=== PATIENT | male | born 1965 ===

== ENCOUNTER 2018-02-02 12:37 | Inpatient (IN) ==
[2018-02-02] MEDS ORDERED: ALBUTEROL 2.5 MG/3 ML NEB RESP TX PRN (16:20)
[2018-02-02] MEDS ORDERED: PANTOPRAZOLE 40 MG VIAL IV SCH (16:30)
[2018-02-02] MEDS ORDERED: GLUCAGON 1 MG VIAL IM PRN (16:50)
[2018-02-02] MEDS ORDERED: DEXTROSE 50% 25 GM/50 ML VIAL IV PRN (16:50)
[2018-02-02 16:59] LABS: Basophils # 0.1 10*3/uL (0.0-0.2); Basophils % 0.4 % (0.0-0.8); Hemoglobin 13.9 GM/DL (14.0-18.0); Immature Granulocytes Absolute 0.34 #; Lymphocytes # 0.6 10*3/uL (1.4-4.0); Lymphocytes % 5.3 % (21.2-54.2); Mean Corpuscular HGB Conc 35.6 GM/DL (32-36); Mean Corpuscular Hemoglobin 31 PG (27-34); Mean Corpuscular Volume 87.4 FL (87-102); Mean Platelet Volume 12.7 FL (9.6-12.0); Monocytes # 1.2 10*3/uL (0.11-0.8); Monocytes % 10.5 % (1.7-12.7); Neutrophils # 9.2 10*3/uL (1.4-7.4); Neutrophils % 80.8 % (38.7-73.9); Red Blood Count 4.46 MC/CUMM (3.8-5.5); Red Cell Distribution Width 11.9 % (9.3-17.3); White Blood Count 11.4 T/CUMM (4-12)
[2018-02-02 17:04] LABS: Platelet Count 33 T/CUMM (130-400)
[2018-02-02 17:14] LABS: INR 0.9; PT Patient Result 10.1 SECS
[2018-02-02 17:20] LABS: Alanine Aminotransferase 24 U/L (16-61); Albumin 2.1 G/DL (3.4-5.0); Alkaline Phosphatase 105 U/L (45-117); Aspartate Amino Transferase 32 U/L (0-37); Blood Urea Nitrogen 13 MG/DL (7-18); Calcium 8.1 MG/DL (8.5-10.1); Glucose 339 MG/DL (74-106); Osmolality,Calculated 276.5 MOS/KG (273-304); Potassium 3.2 MMOL/L (3.5-5.1); Sodium 132 MMOL/L (136-145)
[2018-02-02] MEDS: SODIUM CHLORIDE 0.9% 1,000 ML IV SCH (17:20)
[2018-02-02 17:21] LABS: Lactic Acid 2.1 MMOL/L (0.4-2.0)
[2018-02-02] MEDS: POTASSIUM CHLORIDE 20 MEQ TABLET PO PRN ×3 (17:26→21:55)
[2018-02-02] MEDS: PIPERACILLIN/TAZOBACTAM 3,375 MG in SODIUM CHLORIDE 0.9% 100 ML IV SCH (17:50)
[2018-02-02] MEDS ORDERED: CLINDAMYCIN INJ 600 MG in PREMIX 1 EACH IV SCH (18:00)
[2018-02-02 20:29] LABS: Band Neutrophils 3 % (0-10); Lymphocytes 7 % (20-55); Platelet Estimate Normal; Segmented Neutrophils 82 % (50-85); Total Cells Counted 100
[2018-02-02] MEDS ORDERED: ACETAMINOPHEN 500 MG TABLET PO PRN (21:04)
[2018-02-02] MEDS: INSULIN LISPRO 100 UNIT/ML SUBCUT SCH (21:55)
[2018-02-02] MEDS: VANCOMYCIN INJ 1,250 MG in SODIUM CHLORIDE 0.9% 250 ML IV SCH (21:56)
[2018-02-02 22:51] LABS: Apearance,Urine CLEAR (Clear); Blood, Urine Small mg/dL (Negative); Glucose,Urine (UA) >=500 mg/dL (Negative); Ketones,Urine 20 mg/dL (Negative); Nitrite,Urine Negative (Negative); Protein,Urine 30 MG/DL; RBC,Urine 4 /HPF (0-4); Urine Color Amber (Yellow); Urine Specific Gravity 1.028 (1.001-1.035); WBC,Urine 1 /HPF (0-6)
[2018-02-02 22:52] LABS: Bilirubin,Urine Small mg/dL (Negative)
[2018-02-03] MEDS: SODIUM CHLORIDE 0.9% 1,000 ML IV SCH ×4 (00:02→16:45)
[2018-02-03] MEDS: POTASSIUM CHLORIDE 20 MEQ TABLET PO PRN (00:03)
[2018-02-03] MEDS: PIPERACILLIN/TAZOBACTAM 3,375 MG in SODIUM CHLORIDE 0.9% 100 ML IV SCH (03:20)
[2018-02-03 05:13] LABS: Basophils % 0.3 % (0.0-0.8); Eosinophils % 0.1 % (0.00-10.9); Hematocrit 37.2 VOL% (42.0-52.0); Immature Granulocytes % 3.4 %; Immature Granulocytes Absolute 0.32 #; Lymphocytes # 0.9 10*3/uL (1.4-4.0); Lymphocytes % 9.8 % (21.2-54.2); Mean Corpuscular HGB Conc 34.9 GM/DL (32-36); Mean Corpuscular Hemoglobin 31 PG (27-34); Mean Corpuscular Volume 88.6 FL (87-102); Mean Platelet Volume 12.8 FL (9.6-12.0); Monocytes # 1.2 10*3/uL (0.11-0.8); Monocytes % 12.3 % (1.7-12.7); Neutrophils % 74.1 % (38.7-73.9); Red Cell Distribution Width 12.3 % (9.3-17.3); White Blood Count 9.5 T/CUMM (4-12)
[2018-02-03 05:30] LABS: Platelet Count 34 T/CUMM (130-400)
[2018-02-03 05:41] LABS: Band Neutrophils 2 % (0-10); Eosinophils 2 % (0-10); Hypochromasia 1+; Lymphocytes 6 % (20-55); Platelet Estimate Decreased; Segmented Neutrophils 74 % (50-85); Total Cells Counted 100
[2018-02-03 06:00] LABS: Alanine Aminotransferase 22 U/L (16-61); Albumin 1.9 G/DL (3.4-5.0); Alkaline Phosphatase 95 U/L (45-117); Aspartate Amino Transferase 30 U/L (0-37); Blood Urea Nitrogen 19 MG/DL (7-18); Cholesterol 90 MG/DL (50-200); Glucose 243 MG/DL (74-106); HDL Cholesterol < 10 MG/DL (40-60); Osmolality,Calculated 282.8 MOS/KG (273-304); Potassium 3.9 MMOL/L (3.5-5.1); Sodium 137 MMOL/L (136-145); Total Protein 5.4 G/DL (6.4-8.3); Triglycerides 294 MG/DL (2-150); VLDL CHOLESTEROL 58.8 MG/DL
[2018-02-03] MEDS: VANCOMYCIN INJ 1,250 MG in SODIUM CHLORIDE 0.9% 250 ML IV SCH ×3 (06:37→22:45)
[2018-02-03] MEDS: PANTOPRAZOLE 40 MG TABLET PO SCH (08:14)
[2018-02-03] MEDS: INSULIN LISPRO 100 UNIT/ML SUBCUT SCH ×4 (08:14→21:23)
[2018-02-03] MEDS: MEROPENEM 1,000 MG in SODIUM CHLORIDE 0.9% 100 ML IV SCH ×2 (09:42→17:55)
[2018-02-03] MEDS ORDERED: SODIUM CHLORIDE 0.9% 1,000 ML IV PRN (12:01)
[2018-02-03] MEDS ORDERED: diphenhydrAMINE CAP 50 MG CAPSULE PO ONE (14:40)
[2018-02-03] MEDS ORDERED: diphenhydrAMINE CAP 50 MG CAPSULE ONE (14:45)
[2018-02-03] MEDS ORDERED: ROPIVACAINE 0.5% 30 ML VIAL ONE (14:56)
[2018-02-03] MEDS ORDERED: LIDOCAINE MPF 2% /EPI 20 ML VIAL ONE (14:56)
[2018-02-03] MEDS ORDERED: PROPOFOL 200 MG/20 ML VIAL IV ONE (15:57)
[2018-02-03] MEDS ORDERED: MIDAZOLAM 2 MG/2 ML VIAL ONE (15:58)
[2018-02-03] MEDS ORDERED: ONDANSETRON 4 MG/2 ML VIAL ONE (15:58)
[2018-02-03] MEDS ORDERED: fentaNYL 100 MCG/2 ML VIAL ONE (15:58)
[2018-02-03] MEDS ORDERED: NIFEdipine 10 MG CAPSULE PO PRN (16:41)
[2018-02-03] MEDS ORDERED: INSULIN GLARGINE 100 UNIT/ML SUBCUT SCH (21:00)
[2018-02-03] MEDS: oxyCODONE/ACETAMINOPHEN 5-325 MG TABLET PO PRN (21:22)
[2018-02-04] MEDS: MEROPENEM 1,000 MG in SODIUM CHLORIDE 0.9% 100 ML IV SCH ×3 (01:35→17:59)
[2018-02-04] MEDS: SODIUM CHLORIDE 0.9% 1,000 ML IV SCH ×2 (01:45→14:54)
[2018-02-04 05:00] LABS: Basophils % 0.2 % (0.0-0.8); Eosinophils # 0.1 10*3/uL (0.0-0.87); Eosinophils % 0.5 % (0.00-10.9); Hematocrit 34.7 VOL% (42.0-52.0); Hemoglobin 12.1 GM/DL (14.0-18.0); Immature Granulocytes % 1.1 %; Lymphocytes # 1.1 10*3/uL (1.4-4.0); Lymphocytes % 11.8 % (21.2-54.2); Mean Corpuscular HGB Conc 34.9 GM/DL (32-36); Mean Corpuscular Hemoglobin 32 PG (27-34); Mean Corpuscular Volume 90.4 FL (87-102); Mean Platelet Volume 12.1 FL (9.6-12.0); Monocytes # 0.8 10*3/uL (0.11-0.8); Monocytes % 8.9 % (1.7-12.7); Neutrophils # 7.2 10*3/uL (1.4-7.4); Neutrophils % 77.5 % (38.7-73.9); Platelet Count 44 T/CUMM (130-400); Red Blood Count 3.84 MC/CUMM (3.8-5.5); Red Cell Distribution Width 12.5 % (9.3-17.3); White Blood Count 9.3 T/CUMM (4-12)
[2018-02-04 05:27] LABS: Lymphocytes 8 % (20-55); Platelet Estimate Decreased; Segmented Neutrophils 88 % (50-85); Total Cells Counted 100
[2018-02-04 05:41] LABS: Albumin 1.8 G/DL (3.4-5.0); Bilirubin,Total 6.1 MG/DL (0.2-1.0); Calcium 7.5 MG/DL (8.5-10.1); Osmolality,Calculated 288.7 MOS/KG (273-304); Total Protein 5.1 G/DL (6.4-8.3)
[2018-02-04 05:42] LABS: Potassium 3.3 MMOL/L (3.5-5.1)
[2018-02-04] MEDS: VANCOMYCIN INJ 1,250 MG in SODIUM CHLORIDE 0.9% 250 ML IV SCH ×2 (06:20→22:26)
[2018-02-04] MEDS: INSULIN LISPRO 100 UNIT/ML SUBCUT SCH ×4 (09:16→22:25)
[2018-02-04] MEDS: ASPIRIN EC 81 MG TABLET PO SCH ×2 (09:18→09:54)
[2018-02-04] MEDS: POTASSIUM CHLORIDE 20 MEQ TABLET PO PRN ×2 (09:18→12:11)
[2018-02-04] MEDS: PANTOPRAZOLE 40 MG TABLET PO SCH (09:18)
[2018-02-04] MEDS: INSULIN GLARGINE 100 UNIT/ML SUBCUT SCH (22:25)
[2018-02-04] MEDS: oxyCODONE/ACETAMINOPHEN 5-325 MG TABLET PO PRN (22:27)
[2018-02-05] MEDS: MEROPENEM 1,000 MG in SODIUM CHLORIDE 0.9% 100 ML IV SCH (01:25)
[2018-02-05] MEDS: SODIUM CHLORIDE 0.9% 1,000 ML IV SCH ×3 (01:25→15:15)
[2018-02-05 05:20] LABS: Basophils % 0.3 % (0.0-0.8); Eosinophils # 0.1 10*3/uL (0.0-0.87); Hemoglobin 11.3 GM/DL (14.0-18.0); Immature Granulocytes % 1.5 %; Immature Granulocytes Absolute 0.16 #; Lymphocytes # 1.4 10*3/uL (1.4-4.0); Lymphocytes % 12.5 % (21.2-54.2); Mean Corpuscular HGB Conc 34.2 GM/DL (32-36); Mean Corpuscular Hemoglobin 31 PG (27-34); Mean Corpuscular Volume 90.9 FL (87-102); Mean Platelet Volume 11.6 FL (9.6-12.0); Monocytes # 0.9 10*3/uL (0.11-0.8); Monocytes % 7.9 % (1.7-12.7); Neutrophils # 8.3 10*3/uL (1.4-7.4); Neutrophils % 76.8 % (38.7-73.9); Platelet Count 88 T/CUMM (130-400); Red Blood Count 3.63 MC/CUMM (3.8-5.5); Red Cell Distribution Width 12.7 % (9.3-17.3); White Blood Count 10.8 T/CUMM (4-12)
[2018-02-05 05:32] LABS: Calcium 7.6 MG/DL (8.5-10.1); Osmolality,Calculated 287.4 MOS/KG (273-304); Potassium 3.3 MMOL/L (3.5-5.1)
[2018-02-05 06:01] LABS: Band Neutrophils 1 % (0-10); Eosinophils 2 % (0-10); Hypochromasia 1+; Lymphocytes 11 % (20-55); Platelet Estimate Decreased; Segmented Neutrophils 76 % (50-85); Total Cells Counted 100
[2018-02-05] MEDS ORDERED: LIDOCAINE 1% 20 ML VIAL ONE (06:29)
[2018-02-05] MEDS: INSULIN LISPRO 100 UNIT/ML SUBCUT SCH ×4 (07:12→21:20)
[2018-02-05] MEDS ORDERED: MIDAZOLAM 2 MG/2 ML VIAL ONE (08:10)
[2018-02-05] MEDS ORDERED: fentaNYL 100 MCG/2 ML VIAL ONE (08:10)
[2018-02-05] MEDS ORDERED: PROPOFOL 200 MG/20 ML VIAL IV ONE (08:11)
[2018-02-05] MEDS ORDERED: INSULIN DETEMIR 100 UNIT/ML SUBCUT SCH (09:00)
[2018-02-05] MEDS: VANCOMYCIN INJ 1,250 MG in SODIUM CHLORIDE 0.9% 250 ML IV SCH (09:15)
[2018-02-05] MEDS: PIPERACILLIN/TAZOBACTAM 3,375 MG in SODIUM CHLORIDE 0.9% 100 ML IV SCH ×2 (09:39→16:44)
[2018-02-05] MEDS: PANTOPRAZOLE 40 MG TABLET PO SCH (09:40)
[2018-02-05] MEDS: POTASSIUM CHLORIDE 20 MEQ TABLET PO PRN ×2 (21:20→23:34)
[2018-02-05] MEDS: INSULIN GLARGINE 100 UNIT/ML SUBCUT SCH (21:20)
[2018-02-06] MEDS: POTASSIUM CHLORIDE 20 MEQ TABLET PO PRN ×2 (01:21→08:58)
[2018-02-06] MEDS: PIPERACILLIN/TAZOBACTAM 3,375 MG in SODIUM CHLORIDE 0.9% 100 ML IV SCH ×3 (01:21→17:32)
[2018-02-06] MEDS: SODIUM CHLORIDE 0.9% 1,000 ML IV SCH ×3 (01:29→23:15)
[2018-02-06 06:15] LABS: Basophils % 0.3 % (0.0-0.8); Eosinophils # 0.1 10*3/uL (0.0-0.87); Eosinophils % 0.9 % (0.00-10.9); Hematocrit 31.6 VOL% (42.0-52.0); Hemoglobin 10.6 GM/DL (14.0-18.0); Immature Granulocytes % 1.7 %; Immature Granulocytes Absolute 0.18 #; Lymphocytes # 1.3 10*3/uL (1.4-4.0); Lymphocytes % 12.1 % (21.2-54.2); Mean Corpuscular HGB Conc 33.5 GM/DL (32-36); Mean Corpuscular Hemoglobin 31 PG (27-34); Mean Corpuscular Volume 91.3 FL (87-102); Mean Platelet Volume 10.5 FL (9.6-12.0); Monocytes # 0.7 10*3/uL (0.11-0.8); Monocytes % 6.8 % (1.7-12.7); Neutrophils # 8.5 10*3/uL (1.4-7.4); Neutrophils % 78.2 % (38.7-73.9); Platelet Count 162 T/CUMM (130-400); Red Blood Count 3.46 MC/CUMM (3.8-5.5); White Blood Count 10.8 T/CUMM (4-12)
[2018-02-06 06:32] LABS: Albumin 1.7 G/DL (3.4-5.0); Bilirubin,Total 4.9 MG/DL (0.2-1.0); Calcium 7.8 MG/DL (8.5-10.1); Potassium 3.7 MMOL/L (3.5-5.1); Total Protein 5.6 G/DL (6.4-8.3)
[2018-02-06] MEDS: INSULIN LISPRO 100 UNIT/ML SUBCUT SCH ×4 (07:31→21:31)
[2018-02-06 07:58] LABS: Anisocytosis Slight; Band Neutrophils 7 % (0-10); Lymphocytes 11 % (20-55); Macrocytosis Slight; Platelet Estimate Normal; Segmented Neutrophils 77 % (50-85); Total Cells Counted 100
[2018-02-06] MEDS: PANTOPRAZOLE 40 MG TABLET PO SCH (08:59)
[2018-02-06] MEDS: INSULIN GLARGINE 100 UNIT/ML SUBCUT SCH (21:31)
[2018-02-07] MEDS: PIPERACILLIN/TAZOBACTAM 3,375 MG in SODIUM CHLORIDE 0.9% 100 ML IV SCH ×2 (01:18→09:01)
[2018-02-07 05:26] LABS: Basophils % 0.3 % (0.0-0.8); Eosinophils # 0.1 10*3/uL (0.0-0.87); Eosinophils % 0.7 % (0.00-10.9); Hematocrit 29.6 VOL% (42.0-52.0); Immature Granulocytes % 2.8 %; Immature Granulocytes Absolute 0.28 #; Lymphocytes # 1.2 10*3/uL (1.4-4.0); Lymphocytes % 11.9 % (21.2-54.2); Mean Corpuscular HGB Conc 33.8 GM/DL (32-36); Mean Corpuscular Hemoglobin 31 PG (27-34); Mean Corpuscular Volume 90.5 FL (87-102); Neutrophils # 7.3 10*3/uL (1.4-7.4); Neutrophils % 74.3 % (38.7-73.9); Platelet Count 222 T/CUMM (130-400); Red Blood Count 3.27 MC/CUMM (3.8-5.5); Red Cell Distribution Width 12.9 % (9.3-17.3); White Blood Count 9.8 T/CUMM (4-12)
[2018-02-07 06:01] LABS: Calcium 7.6 MG/DL (8.5-10.1); Hypochromasia Slight; Lymphocytes 5 % (20-55); Osmolality,Calculated 284.1 MOS/KG (273-304); Platelet Estimate Normal; Potassium 3.3 MMOL/L (3.5-5.1); Segmented Neutrophils 89 % (50-85); Total Cells Counted 100
[2018-02-07] MEDS: PANTOPRAZOLE 40 MG TABLET PO SCH (09:01)
[2018-02-07] MEDS: INSULIN LISPRO 100 UNIT/ML SUBCUT SCH ×3 (09:01→17:14)
[2018-02-07] MEDS: AMPICILLIN INJ 1,000 MG in SODIUM CHLORIDE 0.9% 100 ML IV SCH ×2 (11:43→16:40)
[2018-02-07 14:58] VITALS: BP 133/82
[2018-02-07] MEDS ORDERED: AMPICILLIN 500 MG CAPSULE PO SCH (21:00)
== END 2018-02-07 17:15 | DRG 854 ==
LOC: N.CC 16:05 → SUATTDRO 16:05 → N.3E 02-04 13:07
PROVIDERS: ADMIT Internal Medicine; ATTEND Internal Medicine